=== PATIENT | female | born 1980 | race Caucasian/White ===

== ENCOUNTER 2017-03-25 08:10 | Day surgery (SDC) | payer BC ==
[~2017-03-25] VITALS: Ht 162.6 cm; Wt 131.5 kg
[~2017-03-25 08:10] MED LIST: ADVIL,NUPRIN,M200 MG PO; BUSPAR5 MG PO; ENDOCET 5-3251 EACH PO; LORTAB 5-325 M1 EACH PO; LYRICA150 MG PO; MOTRIN800 MG PO; Motrin PO; NEURONTIN100 MG PO; NOHOMEMEDS; TYLENOL EXTRA500 MG PO; TYLENOL WITH C1 EACH PO; VALTREX50 MG/ML PO
[2017-03-25 08:50] LABS: HEMATOCRIT 44.3 % (36.0-46.0); MCH 28.9 PG (29.0-34.0); MCHC 32.1 G/DL (30.0-36.0); MEAN PLAT.VOLUME 11.8 uM^3 (9.5-12.4); PLATELET COUNT 193 K/uL (156-360); RBC DIS.WIDTH-CV 12.8 % (11.8-14.6); RBC DIS.WIDTH-SD 41.9 % (39-53); RED BLOOD COUNT 4.92 M/uL (3.80-5.20); WHITE BLOOD COUNT 6.9 K/uL (4.1-10.2)
[2017-03-25 09:00] VITALS: BP 133/79
[2017-03-25 09:02] LABS: CHLORIDE 112 mEq/L (99-109); POTASSIUM 4.1 mEq/L (3.7-5.4); SODIUM 140 mEq/L (136-147)
[2017-03-25 09:04] LABS: GLUCOSE 91 mg/dL (70-99)
[2017-03-25 09:05] LABS: ANION GAP 5 MEQ/L (2-14)
[2017-03-25 09:08] LABS: GFR ESTIMATE (CALCULATED) > 59 mL/min/
[2017-03-25 09:09] LABS: UREA NITROGEN (BUN) 16 mg/dL (9-23)
[2017-03-25 16:54] VITALS: BP 94/59
[2017-03-25 19:26] VITALS: BP 130/66
[2017-03-25 23:33] VITALS: BP 122/64
[2017-03-26 03:30] VITALS: BP 117/57
[2017-03-26 07:39] VITALS: BP 139/63
[2017-03-26] MEDS ORDERED: PERCOCET 5/31 TABLET PO (08:58)
[2017-03-26] MEDS ORDERED: ADVIL,NUPRIN,M200 MG PO (08:58)
[2017-03-26 11:30] VITALS: BP 123/73
[2017-03-26 14:33] LABS: EOSINOPHIL (%) 1.4 % (0-5); EOSINOPHIL COUNT 0.2 K/uL (0-0.3); HEMATOCRIT 34.6 % (36.0-46.0); IMMATURE GRANULOCYTE (%) 0.8 % (0.0-0.7); IMMATURE GRANULOCYTE COUNT 0.1 K/uL; INSTRUMENT ABS NEUTROPHIL CT 6.8 K/uL; LYMPHOCYTE COUNT 2.7 K/uL (1.0-2.8); MCH 30.3 PG (29.0-34.0); MCHC 33.5 G/DL (30.0-36.0); MCV 90.3 FL (83-99); MEAN PLAT.VOLUME 12.6 uM^3 (9.5-12.4); MONOCYTE (%) 7.4 % (3-12); MONOCYTE COUNT 0.8 K/uL (0-0.8); NEUTROPHIL (%) 64.2 % (45-76); NEUTROPHIL COUNT 6.8 K/uL (1.8-6.4); PLATELET COUNT 183 K/uL (156-360); RBC DIS.WIDTH-CV 12.9 % (11.8-14.6); RBC DIS.WIDTH-SD 42.5 % (39-53); WHITE BLOOD COUNT 10.6 K/uL (4.1-10.2)
[2017-03-26 14:54] LABS: RED BLOOD COUNT 3.83 M/uL (3.80-5.20)
== END 2017-03-26 15:37 | disposition home or self-care (01) ==
LOC: SDC 08:10 → 2SOUTH 13:42 → 2EAST 13:42 → 2SOUTH 13:42 → ENRESERV 13:43 → SDC 13:46 → ENRESERV 14:25 → 2EAST 14:41
PROVIDERS: Obstetrics & Gynecology
DX: N99.3 Prolapse of vaginal vault after hysterectomy (principal); N39.3 Stress incontinence (female) (male); E66.01 Morbid (severe) obesity due to excess calories; Z68.43 Body mass index [BMI] 50.0-59.9, adult; F41.8 Other specified anxiety disorders
CPT/HCPCS: 80048; 85025; 85027; 86900; 86901; G0378; J0690; J1170; J1885; J2250; J2405; J2710; J3010; J7120

== ENCOUNTER 2017-08-31 23:00 | Emergency (ER) | payer BC ==
[~2017-08-31] VITALS: Ht 162.6 cm; Wt 144.4 kg
[~2017-08-31 23:00] MED LIST changes: +PERCOCET 5/31 TABLET PO
[2017-08-31 23:11] VITALS: BP 160/106
[2017-08-31] MEDS ORDERED: NAPROSYN500 MG PO (23:16)
[2017-08-31] MEDS ORDERED: MEDROL DOSEPAK4 MG PO (23:16)
[2017-08-31] MEDS ORDERED: FLEXERIL10 MG PO (23:16)
== END 2017-08-31 23:47 | disposition home or self-care (01) ==
LOC: EME 23:00
DX: M54.9 Dorsalgia, unspecified (principal); M54.30 Sciatica, unspecified side; F17.200 Nicotine dependence, unspecified, uncomplicated
CPT/HCPCS: 99281; 99283